=== PATIENT | female | born 1965 | race American Indian/Alaskan Native ===

== ENCOUNTER 2016-12-08 19:17 | Emergency (ER) | payer OTHER ==
[2016-12-08] MEDS: TYLENOL PO ONE (20:38)
--- NOTE | 2016-12-08 21:31 | Emergency Department Report ---
ED Fall HPI - General Chief Complaint: Fall Stated Complaint: L SHOULDER PAIN Time Seen by Provider: 12/08/16 21:06 Source: patient, family, EMS Mode of arrival: Wheelchair Limitations: No Limitations - History of Present Illness Initial Comments: Patient here reports fall in was accidental to left side last night. She says she lives consciousness but unsure for how long she denies any headache at present. Reporting nasal congestion. She is also complaining the left arm and shoulder pain this radiating down her left side. Denies any nausea vomiting. Denies any fever or chills. Pain is 10 out of 10. She states she hit her left shoulder when she fell. No wayd-bhh-motsqox medication taken. Described pain as aching pain. Denies being on any blood thinner. Denies any neck pain or stiffness. Denies any chest pain or shortness of breath. MD Complaint: fall -: Last night Fall From: chair When Fall Occurred: # days [employer] (1) Fall Witnessed: yes, by family Place Fall Occurred: home Loss of Consciousness: yes Prolonged Down Time?: unclear Symptoms Prior to Fall: none Location - Extremities: Left: Shoulder (pain to left shoulder and arm.), Arm ( Pain to her left shoulder and arm) Severity: severe Severity scale (0 -10): 7 Quality: aching Context: tripped/slipped Associated Symptoms: denies: headache, neck pain, numbness, weakness, chest paint, shortness of breath, abdominal pain, hematuria, unable to walk, lightheaded, vertigo, confusion - Related Data Previous Rx's Medication Instructions Recorded Last Taken Type Amoxicillin [Amoxicillin TAB] 875 mg PO BID #14 tablet 12/09/16 Unknown Rx Cetirizine HCl [ZyrTEC] 10 mg PO QDAY #14 capsule 12/09/16 Unknown Rx Fluticasone [Flonase] 1 spray NS QDAY #1 bottle 12/09/16 Unknown Rx Ibuprofen [Motrin] 600 mg PO Q8H PRN #15 tablet 12/09/16 Unknown Rx Allergies Allergy/AdvReac Type Severity Reaction Status Date / Time codeine Allergy Unknown Verified 12/08/16 20:31 wool Allergy Unknown Verified 12/08/16 20:31 ED Review of Systems ROS: Stated complaint: L SHOULDER PAIN Other details as noted in HPI Comment: All other systems reviewed and negative Constitutional: denies: chills, fever ENT: denies: throat pain Respiratory: no symptoms reported Cardiovascular: denies: chest pain, palpitations, edema, syncope Gastrointestinal: denies: abdominal pain, nausea, vomiting Genitourinary: denies: urgency, dysuria, frequency, hematuria Musculoskeletal: arthralgia. denies: back pain Skin: denies: rash Neurological: denies: headache, weakness, numbness, paresthesias, confusion ED Past Medical Hx - Past Medical History Previous Medical History?: Yes Hx Hypertension: No Additional medical history: OCD - Surgical History Past Surgical History?: No - Family History Family history: no significant - Social History Substance Use Type: None - Medications Home Medications: Home Medications Medication Instructions Recorded Confirmed Last Taken Type Amoxicillin [Amoxicillin TAB] 875 mg PO BID #14 tablet 12/09/16 Unknown Rx Cetirizine HCl [ZyrTEC] 10 mg PO QDAY #14 capsule 12/09/16 Unknown Rx Fluticasone [Flonase] 1 spray NS QDAY #1 bottle 12/09/16 Unknown Rx Ibuprofen [Motrin] 600 mg PO Q8H PRN #15 tablet 12/09/16 Unknown Rx ED Physical Exam - General Limitations: No Limitations General appearance: alert, in no apparent distress - Head Head exam: Present: atraumatic, normocephalic, normal inspection - Expanded Head Exam Expanded Head exam: Absent: laceration, abrasion, contusion, hematoma, racoon eyes, higgins's sign, general tenderness, tenderness of temporal artery, CSF rhinorrhea , CSF otorrhea - Eye Eye exam: Present: normal appearance, PERRL, EOMI. Absent: nystagmus, periorbital swelling, periorbital tenderness Pupils: Present: normal accommodation - ENT ENT exam: Present: normal exam, normal orophraynx, mucous membranes moist, normal external ear exam, other (bilateral nasal mucosa congested and erythema.) . Absent: TM's normal bilaterally (Bilateral TMs congested. Bilateral maxillary sinus and frontal sinuses nontender to palpate.) - Neck Neck exam: Present: normal inspection, full ROM. Absent: tenderness, meningismus, lymphadenopathy - Expanded Neck Exam Expanded Neck exam: Absent: tenderness, midline deformity, anterior neck swelling, tracheal deviation - Respiratory Respiratory exam: Present: normal lung sounds bilaterally. Absent: respiratory distress, chest wall tenderness - Cardiovascular Cardiovascular Exam: Present: regular rate, normal rhythm, normal heart sounds - GI/Abdominal GI/Abdominal exam: Present: soft, normal bowel sounds. Absent: distended, tenderness, guarding, rebound, rigid - Expanded Upper Extremity Exam Left Shoulder Exam: Present: normal inspection, full ROM (patient able to raise her arms over her head but she said it hurts in her shoulder), tenderness, tenderness over AC joint. Absent: swelling, abrasion, laceration, ecchymosis, deformity, crepidus, dislocation, erythema Upper Arm exam: Present: normal inspection, full ROM. Absent: tenderness, swelling, abrasion, laceration, ecchymosis, deformity, crepidus, dislocation, erythema Elbow exam: Present: normal inspection, full ROM. Absent: tenderness, swelling , abrasion, laceration, ecchymosis, deformity, crepidus, dislocation, erythema, effusion, pain w/ pronation/supination, tenderness over radial head Forearm Wrist exam: Present: normal inspection, full ROM. Absent: tenderness, swelling, abrasion, laceration, ecchymosis, deformity, crepidus, dislocation, erythema, tenderness over anatomical snuff box, pain with axial thumb loading Hand Wrist exam: Present: normal inspection, full ROM. Absent: tenderness, swelling, abrasion, laceration, ecchymosis, deformity, crepidus, dislocation, erythema, amputation, nail avulsion, subungual hematoma Neuro motor exam: Present: wrist extension intact, thumb opposition intact, thumb IP flexion intact, thumb adduction intact, fingers 2-5 abduction intact Neurosensory exam: Present: 2-point discrimination, radial nerve intact, ulnar nerve intact, median nerve intact Vascular: Present: normal capillary refill, radial pulse, brachial pulse, ulnar pulse. Absent: vascular compromise, Pallo, pulse deficit radial art, pulse deficit ulnar art, pulse deficit brachial art - Back Exam Back exam: Present: normal inspection, full ROM. Absent: tenderness, CVA tenderness (R), CVA tenderness (L), muscle spasm, paraspinal tenderness, vertebral tenderness, rash noted - Neurological Exam Neurological exam: Present: alert, oriented X3, normal gait, reflexes normal. Absent: motor sensory deficit - Expanded Neurological Exam Expanded Neurological exam: Absent: innattentive, memory loss-remote event, memory loss- recent event, ataxia, receptive aphasia, expressive aphasia, total aphasia, tremor, protecting the airway Patient oriented to: Present: person, place, time Speech: Present: fluid speech Cranial nerves: EOM's Intact: Normal, Gag Reflex: Normal, Nystagmus: Normal, Facial Sensation: Normal Cerebellar function: Romberg: Normal Upper motor neuron: Pronator Drift: Normal, Sensory Extinction: Normal Sensory exam: Upper Extremity Light Touch: Normal, Upper Extremity Temperature: Normal, UE 2 Point Discrimination: Normal, Lower Extremity Light Touch: Normal, Lower Extremity Temperature: Normal, LE 2 Point Discrimination: Normal Motor strength exam: RUE: 5, LUE: 5, RLE: 5, LLE: 5 DTR: bicep (R): 2+, bicep (L): 2+, tricep (R): 2+, tricep (L): 2+, knee (R): 2+ , knee (L): 2+, ankle (R): 2+, ankle (L): 2+ Best Eye Response (Jackson): (4) open spontaneously Best Motor Response (Lexi): (6) obeys commands Best Verbal Response (Lexi): (5) oriented Jackson Total: 15 - Psychiatric Psychiatric exam: Present: normal affect, normal mood - Skin Skin exam: Present: warm, dry, intact, normal color. Absent: rash ED Course Vital Signs 12/08/16 12/09/16 20:31 00:12 Temperature 98.2 F Pulse Rate 68 Respiratory 18 Rate Blood Pressure 177/100 Blood Pressure 160/80 [Left] O2 Sat by Pulse 99 Oximetry Vital Signs 12/08/16 12/09/16 20:31 00:12 Temperature 98.2 F Pulse Rate 68 Respiratory 18 Rate Blood Pressure 177/100 Blood Pressure 160/80 [Left] O2 Sat by Pulse 99 Oximetry - Reevaluation(s) Reevaluation #1: 12/09/16 00:20 Patient given Tylenol 650 mg in triage area which did not relieve her shoulder pain. He was then given Dilaudid 1 mg IM along with Zofran 4 mg ODT patient said after shoulder pain. ED Medical Decision Making - Radiology Data Radiology results: report reviewed X-ray of right shoulder reveal no acute fracture or dislocation. CT scan of the brain revealed only: Infarct in the vin. Right maxillary sinusitis. No evidence of traumatic intracranial injury. CAT scan of the C-spine revealed degenerative disease without any fracture or subluxation. - Medical Decision Making ED course: Patient with shoulder pain status post falling. She has degeneration of the C-spine. CT scan of the head reveals normal coronary and circumflex with right maxillary sinus infection. Patient with congestion and erythema to nostrils. I instructed patient and family on diagnostic findings and let her know that she'll need to follow-up with orthopedic doctor regarding degenerative disease in her neck. I also instructed her that she has a sinus infection and will be treated with antibiotic. Condition discharged home with prescription for Zyrtec, Flonase, amoxicillin and motrin Critical care attestation.: If time is entered above; I have spent that time in minutes in the direct care of this critically ill patient, excluding procedure time. ED Disposition Clinical Impression: Arthralgia of left shoulder region, Degenerative disc disease, cervical, Elevated blood pressure (not hypertension) Accidental fall Qualifiers: Encounter type: initial encounter Qualified Code(s): W19.XXXA - Unspecified fall, initial encounter Maxillary sinusitis Qualifiers: Chronicity: unspecified Qualified Code(s): J32.0 - Chronic maxillary sinusitis Minor head injury with loss of consciousness Qualifiers: Encounter type: initial encounter Loss of consciousness presence/duration: with LOC of 30 min or less Qualified Code(s): S06.9X1A - Unspecified intracranial injury with loss of consciousness of 30 minutes or less, initial encounter Disposition: DISCHARGED TO HOME OR SELFCARE Is pt being admited?: No Does the pt Need Aspirin: No Condition: Stable Instructions: Sinusitis (ED), Minor Head Injury (ED), Hypertension (ED), Arthralgia (ED), Degenerative Disc Disease (ED) Additional Instructions: Your blood pressure was elevated and emergency room so please keep a log and take to primary care visit. Follow-up with orthopedic doctor regarding her degenerative disease any neck Take medications as prescribed Prescriptions: Amoxicillin [Amoxicillin TAB] 875 mg PO BID #14 tablet Cetirizine HCl [ZyrTEC] 10 mg PO QDAY #14 capsule Fluticasone [Flonase] 1 spray NS QDAY #1 bottle Ibuprofen [Motrin] 600 mg PO Q8H PRN #15 tablet PRN Reason: Pain Referrals: PRIMARY CARE,MD [Primary Care Provider] - 3-5 Days [facility] [Outside] - 3-5 Days Forms: Accompanied Note, Work/School Release Form(ED)
[2016-12-08] MEDS: ZOFRAN ODT PO ONE (22:01)
[2016-12-08] MEDS: DILAUDID IM ONE (22:01)
--- NOTE | 2016-12-08 22:30 | XRay Report ---
FINAL REPORT PROCEDURE: Left shoulder. TECHNIQUE: Three views. HISTORY: Patient fell, shoulder pain. COMPARISON: No prior studies are available for comparison. FINDINGS: The bones appear intact without fracture or dislocation. The joint spaces appear normal. The soft tissues are unremarkable. IMPRESSION: Normal study.
--- NOTE | 2016-12-08 23:38 | Cat Scan Report ---
FINAL REPORT PROCEDURE: CT head without contrast. TECHNIQUE: Computerized tomography of the head was performed without contrast material. HISTORY: Head injury. COMPARISON: No prior studies are available for comparison. FINDINGS: The ventricles are normal in size. There is an old lacunar infarct in the vin. The huff matter and white matter are otherwise normal. There are no mass lesions. There is no intracranial hemorrhage. The mastoid air cells are clear. There is opacification in the right maxillary sinus as far as visualized. IMPRESSION: Old lacunar infarct in the vin. Right maxillary sinusitis. No evidence of traumatic intracranial injury.
--- NOTE | 2016-12-08 23:44 | Cat Scan Report ---
FINAL REPORT PROCEDURE: CT cervical spine without contrast. TECHNIQUE: Computerized tomography of the cervical spine was performed from the skull base to T1 without contrast material. HISTORY: Head and neck injury. COMPARISON: No prior studies are available for comparison. FINDINGS: The cervical vertebrae have normal height and alignment. There are no fractures. There is no subluxation. There are large vertebral body osteophytes in the mid and lower cervical spine. The spinal canal is widely patent. There is osteoarthritis involving a few of the facet joints. The neural foramina appear adequately patent. The prevertebral soft tissues have normal thickness. IMPRESSION: Degenerative disease as described. No evidence of acute cervical spine injury.
[2016-12-09 00:15] VITALS: BP 160/80
== END 2016-12-09 00:45 | disposition home or self-care (01) ==
LOC: ED 19:17
DX: S06.9X1A Unspecified intracranial injury with loss of consciousness of 30 minutes or less, initial encounter (principal); M25.512 Pain in left shoulder; M79.602 Pain in left arm; M50.30 Other cervical disc degeneration, unspecified cervical region; R03.0 Elevated blood-pressure reading, without diagnosis of hypertension; W01.0XXA Fall on same level from slipping, tripping and stumbling without subsequent striking against object, initial encounter; Y93.89 Activity, other specified; Y99.8 Other external cause status; Y92.89 Other specified places as the place of occurrence of the external cause; Z88.5 Allergy status to narcotic agent; Z91.048 Other nonmedicinal substance allergy status
CPT/HCPCS: 70450; 72125; 73030; 96372; 99284; J1170; Q0162

== ENCOUNTER 2017-08-10 16:50 | Emergency (ER) | payer SELFPAY ==
[2017-08-10] MEDS ORDERED: TORADOL IM ONE (17:51)
--- NOTE | 2017-08-10 17:56 | Emergency Department Report ---
ED Fall HPI - General Chief Complaint: Extremity Injury, Lower Stated Complaint: LT KNEE PAIN Time Seen by Provider: 08/10/17 17:50 Source: patient, EMS Mode of arrival: Stretcher Limitations: No Limitations - History of Present Illness Initial Comments: 52 YO FEMALE C/O LEFT KNEE PAIN AND SWELLING AND NECK PAIN AFTER FALLING ON THE [employer]. PT SAID THE WRAPPER SELECTOR HIT THE CURB AND SHE FELL HITTING HER LEFT KNEE AND HER NECK. SHE HAD SURGERY TWICE ON THE LEFT KNEE AT [facility] FOR EFFUSION OF THE LEFT KNEE. PER PT, THEY HAD TO REMOVE FLUID FROM HER KNEE JOINT TWICE MD Complaint: fall -: Sudden Fall From: standing When Fall Occurred: 1-3 hours [employer] Fall Witnessed: yes, by bystander Place Fall Occurred: other (ON THE [employer]) Loss of Consciousness: none Prolonged Down Time?: no Symptoms Prior to Fall: none Location - Extremities: Left: Knee Severity scale (0 -10): 10 Associated Symptoms: neck pain - Related Data Previous Rx's Medication Instructions Recorded Last Taken Type Amoxicillin [Amoxicillin TAB] 875 mg PO BID #14 tablet 12/09/16 Unknown Rx Cetirizine HCl [ZyrTEC] 10 mg PO QDAY #14 capsule 12/09/16 Unknown Rx Fluticasone [Flonase] 1 spray NS QDAY #1 bottle 12/09/16 Unknown Rx Ibuprofen [Motrin 600 MG tab] 600 mg PO Q8H PRN #15 tablet 08/10/17 Unknown Rx oxyCODONE /ACETAMINOPHEN [Percocet 1 tab PO Q6HR PRN #14 tablet 08/10/17 Unknown Rx 5/325] Allergies Allergy/AdvReac Type Severity Reaction Status Date / Time codeine Allergy Unknown Verified 12/08/16 20:31 wool Allergy Unknown Verified 12/08/16 20:31 ED Review of Systems ROS: Stated complaint: LT KNEE PAIN Other details as noted in HPI Constitutional: denies: chills, fever Eyes: denies: eye pain, eye discharge, vision change ENT: denies: ear pain, throat pain Respiratory: denies: cough, shortness of breath, wheezing Cardiovascular: denies: chest pain, palpitations Endocrine: no symptoms reported Gastrointestinal: denies: abdominal pain, nausea, diarrhea Genitourinary: denies: urgency, dysuria, discharge Musculoskeletal: joint swelling, arthralgia. denies: back pain Skin: denies: rash, lesions Neurological: denies: headache, weakness, paresthesias Psychiatric: denies: anxiety, depression Hematological/Lymphatic: denies: easy bleeding, easy bruising ED Past Medical Hx - Past Medical History Previous Medical History?: Yes Hx Hypertension: Yes Hx Diabetes: Yes Additional medical history: OCD - Surgical History Past Surgical History?: Yes Additional Surgical History: left knee surgery X2 - Family History Family history: hypertension - Social History Smoking Status: Current Every Day Smoker Substance Use Type: None - Medications Home Medications: Home Medications Medication Instructions Recorded Confirmed Last Taken Type Amoxicillin [Amoxicillin TAB] 875 mg PO BID #14 tablet 12/09/16 Unknown Rx Cetirizine HCl [ZyrTEC] 10 mg PO QDAY #14 capsule 12/09/16 Unknown Rx Fluticasone [Flonase] 1 spray NS QDAY #1 bottle 12/09/16 Unknown Rx Ibuprofen [Motrin 600 MG tab] 600 mg PO Q8H PRN #15 tablet 08/10/17 Unknown Rx oxyCODONE /ACETAMINOPHEN [Percocet 1 tab PO Q6HR PRN #14 tablet 08/10/17 Unknown Rx 5/325] ED Physical Exam - General Limitations: No Limitations General appearance: alert, in no apparent distress - Head Head exam: Present: atraumatic, normocephalic - Eye Eye exam: Present: normal appearance - ENT ENT exam: Present: mucous membranes moist - Neck Neck exam: Present: normal inspection, tenderness (PARASPINOUS MUSCLE TNEERNESS) - Respiratory Respiratory exam: Present: normal lung sounds bilaterally. Absent: respiratory distress - Cardiovascular Cardiovascular Exam: Present: regular rate, normal rhythm. Absent: systolic murmur, diastolic murmur, rubs, gallop - GI/Abdominal GI/Abdominal exam: Present: soft, normal bowel sounds - Rectal Rectal exam: Present: deferred - Extremities Exam Extremities exam: Present: normal inspection, full ROM (BUT TENDER), tenderness (OVER LEFT KNEE, SWELLING, MIDLINE HEALED SURGICAL SCAR, NO ABRUISING, NO ABRASION) - Back Exam Back exam: Present: normal inspection, full ROM - Neurological Exam Neurological exam: Present: alert, oriented X3, CN II-XII intact - Psychiatric Psychiatric exam: Present: normal affect, normal mood - Skin Skin exam: Present: warm, dry, intact, normal color. Absent: rash ED Course Vital Signs 08/10/17 08/10/17 16:52 17:29 Temperature 98.7 F 98.2 F Pulse Rate 88 84 Respiratory 18 18 Rate Blood Pressure 164/100 Blood Pressure 164/100 [Left] O2 Sat by Pulse 97 100 Oximetry - Reevaluation(s) Reevaluation #1: 08/10/17 20:53 PT CARE TURNED OVER TO DR PATRICIO WHO WILL FOLLOW HER CT AND MAKE APPROPRIATE DISPOSITION ED Medical Decision Making - Radiology Data Radiology results: report reviewed (LEFT KNEE:OSTEOPENIA,DJD OF LEFT KNEE ), image reviewed (CXR; SEVERE DJD,OA; LEFT KNEE: DJD,OA) Critical care attestation.: If time is entered above; I have spent that time in minutes in the direct care of this critically ill patient, excluding procedure time. ED Disposition Clinical Impression: Neck pain, Osteopenia Knee contusion Qualifiers: Encounter type: initial encounter Laterality: left Qualified Code(s): S80.02XA - Contusion of left knee, initial encounter DJD (degenerative joint disease) of cervical spine Qualifiers: Spinal osteoarthritis complication: unspecified spinal osteoarthritis Qualified Code(s): M47.812 - Spondylosis without myelopathy or radiculopathy, cervical region DJD (degenerative joint disease) of knee Qualifiers: Osteoarthritis type: unspecified Laterality: left Qualified Code(s): M17.12 - Unilateral primary osteoarthritis, left knee Disposition: TO HOME OR SELFCARE Is pt being admited?: No Does the pt Need Aspirin: No Condition: Stable Instructions: Osteoarthritis (ED), Knee Pain (ED), Cervical Sprain (ED), Degenerative Disc Disease (ED) Additional Instructions: PLEASE FOLLOW UP WITH YOUR BONE DR IN TWO DAYS AND SEE FABBY BOTELLO DR SOON POSSIBLE Prescriptions: Ibuprofen [Motrin 600 MG tab] 600 mg PO Q8H PRN #15 tablet PRN Reason: Pain oxyCODONE /ACETAMINOPHEN [Percocet 5/325] 1 tab PO Q6HR PRN #14 tablet PRN Reason: Pain Referrals: PRIMARY CARE,MD [Primary Care Provider] - 3-5 Days Time of Disposition: 20:14
--- NOTE | 2017-08-10 20:01 | XRay Report ---
FINAL REPORT PROCEDURE: XR KNEE 3V LT TECHNIQUE: LEFT knee radiographs, AP, lateral and sunrise views. CPT 43193 HISTORY: Fall, pain. COMPARISON: No prior studies are available for comparison. FINDINGS: Fracture (s) and/or Dislocation(s): None . Joint space: Moderate lateral and patellofemoral compartment narrowing and osteophytes. Moderate to severe medial compartment narrowing and osteophytes with small subchondral cysts. Tibial eminence spurring. Patellar enthesophyte. Joint effusion. Amorphous calcification in the supra and infrapatellar regions. Alignment: Mild genu valgum. Soft tissues: Normal . Bone mineralization: Osteopenia. Foreign bodies: None . IMPRESSION: Osteopenia and degenerative change of the knee.
--- NOTE | 2017-08-10 20:20 | XRay Report ---
FINAL REPORT EXAM: XR SPINE CERVICAL 2-3V HISTORY: TRAUMA TO NECK TECHNIQUE: AP, lateral, swimmer's, open-mouth odontoid and odontoid Fuchs radiographs of the cervical spine. PRIORS: CT of the cervical spine 12/08/2016. FINDINGS: The cervical spine is imaged from C1 through C7. The cervicothoracic junction was not completely imaged. Normal alignment. There is a new lucency through the body of the odontoid. There is prevertebral soft tissue swelling. The lateral masses of C1 and C2 are in normal alignment. Multilevel degenerative changes of the cervical spine are again seen. IMPRESSION: Findings concerning for acute odontoid fracture. Recommend further evaluation with CT of the cervical spine. Findings were discussed with Dr. Morales at 5:14 p.m. PST on 08/10/2017.
--- NOTE | 2017-08-10 20:58 | Cat Scan Report ---
FINAL REPORT EXAM: CT CERVICAL SPINE WO CON HISTORY: ODONTOID FRACTURE TECHNIQUE: CT of the cervical spine was performed without intravenous contrast. Reconstructions were included in the coronal and sagittal planes. PRIORS: Cervical spine radiographs from earlier today and cervical spine CT from 12/08/2016. FINDINGS: New erosive changes of the anterior and posterior aspects of the odontoid are seen. Erosion of the anterior ring of C1 is also seen. These findings are new since the prior cervical spine CT from 12/08/2016. No evidence of cervical spine fracture. No subluxation. Fullness of the soft tissues surrounding the dens may be related to pannus formation. Multilevel degenerative changes of the cervical spine are again seen with multilevel neural foraminal narrowing. No severe spinal canal stenosis. There is a right mastoid effusion. IMPRESSION: New erosions of the dens likely causing the appearance of fracture on the radiographs from earlier today. Erosions also involving the anterior arch of C1. Findings most likely are related to inflammatory arthropathy such as rheumatoid arthritis versus systemic lupus erythematosus versus crystal arthropathy or osteomyelitis. Findings can also be seen in hyperparathyroidism.
[2017-08-10] MEDS ORDERED: ZOFRAN IV ONE (22:09)
[2017-08-10] MEDS ORDERED: MORPHINE IV ONE (22:13)
--- NOTE | 2017-08-10 23:45 | Magnetic Resonance Report ---
FINAL REPORT PROCEDURE: MR CERVICAL SPINE WO CON TECHNIQUE: Magnetic resonance imaging of the cervical spine was performed using standard pulse sequences without contrast material. HISTORY: neck pain COMPARISON: CT and x-ray FINDINGS: The generalized signal intensity of the osseous structures is intact. There is no fracture. Odontoid process is diminished signal consistent with sclerosis. There is cortical irregularity suggesting erosive change of the odontoid and C1 ring. There is no acute fracture. C1-2: Arthritic change with spurring, ligamentous hypertrophy, erosive change, and effusion. C2-3: Disc space is well preserved. Mild facet spurring. C3-4: Disc bulge and spurring flattening the thecal sac. Facet spurring on the right. C4-5: Disc space narrowing. Disc bulge and spurring to the right narrowing the right lateral recess. Uncovertebral spurring with right foraminal narrowing. C5-6: Disc space narrowing. Disc bulge and spurring flattening the thecal sac with narrowing of the right lateral recess. Facet and uncovertebral spurring with foraminal narrowing.. C6-7: Disc space narrowing. Central disc protrusion. C7-T1: No significant abnormality . Other: None . IMPRESSION: Cervical spondylosis. Arthritic change at the atlantoaxial articulation.
[2017-08-11 07:52] VITALS: BP 117/66
== END 2017-08-11 01:40 | disposition home or self-care (01) ==
LOC: ED 16:50
DX: S80.02XA Contusion of left knee, initial encounter (principal); M47.812 Spondylosis without myelopathy or radiculopathy, cervical region; M85.80 Other specified disorders of bone density and structure, unspecified site; F17.200 Nicotine dependence, unspecified, uncomplicated; I10 Essential (primary) hypertension; E11.9 Type 2 diabetes mellitus without complications; F42.9 Obsessive-compulsive disorder, unspecified; W18.00XA Striking against unspecified object with subsequent fall, initial encounter; Y93.89 Activity, other specified; Y99.8 Other external cause status; Y92.811 Bus as the place of occurrence of the external cause
CPT/HCPCS: 72040; 72125; 72141; 73562; 96372; 96374; 96375; 99284; J1885; J2270; J2405

== ENCOUNTER 2018-11-01 13:53 | Emergency (ER) | payer MEDICAID, OTHER ==
[2018-11-01] MEDS ORDERED: NACL 0.9% 1000 ML 1,000 ML IV ONE (14:23)
[2018-11-01] MEDS ORDERED: TORADOL IV ONE (14:23)
[2018-11-01 14:46] LABS: Basophils % (Auto) 0.5 % (0.0-1.8); Eosinophils % (Auto) 0.2 % (0.0-4.3); Hemoglobin 13.7 gm/dl (10.1-14.3); Lymphocytes # (Auto) 1.9 K/mm3 (1.2-5.4); Lymphocytes % (Auto) 25.5 % (13.4-35.0); Mean Corpuscular HGB Conc 34 % (30-34); Mean Corpuscular Volume 91 fl (79-97); Monocytes # (Auto) 0.4 K/mm3 (0.0-0.8); Platelet Count 208 K/mm3 (140-440); Red Cell Distribution Width 16.4 % (13.2-15.2)
[2018-11-01 15:04] LABS: Alanine Aminotransferase 206 units/L (7-56); Albumin 3.8 g/dL (3.9-5); BUN/Creatinine Ratio 14; Blood Urea Nitrogen 13 mg/dL (7-17); Calcium 9.6 mg/dL (8.4-10.2); Hemolysis Index 8
[2018-11-01 15:25] LABS: Bilirubin,Urine NEG (Negative); Blood,Urine NEG (Negative); Color,Urine Yellow (Yellow); Protein,Urine <15 mg/dL mg/dL (Negative); WBC,Urine < 1.0 /HPF (0.0-6.0)
--- NOTE | 2018-11-01 16:19 | Emergency Department Report ---
ED Abdominal Pain HPI - General Chief Complaint: Abdominal Pain Stated Complaint: ABD PAIN Time Seen by Provider: 11/01/18 14:12 Source: patient, EMS Mode of arrival: Stretcher Limitations: No Limitations - History of Present Illness Initial Comments: 53-year-old female with history of drug abuse, hepatitis C presents to ED with low abdominal pain 2 days. Patient states she was seen at [facility] on yesterday and told that she had a "size 8" kidney stone. Patient reports history of kidney stones in the past. Reports difficulty urinating. Denies N/V. Requesting something to eat. MD Complaint: abdominal pain -: days(s) (2) Location: suprapubic Migration to: no migration Severity: moderate Severity scale (0 -10): 10 Quality: sharp Consistency: constant Improves With: nothing Worsens With: nothing Associated Symptoms: other (reports difficulty urinating). denies: nausea, vomiting - Related Data Previous Rx's Medication Instructions Recorded Last Taken Type Amoxicillin [Amoxicillin TAB] 875 mg PO BID #14 tablet 12/09/16 Unknown Rx Cetirizine HCl [ZyrTEC] 10 mg PO QDAY #14 capsule 12/09/16 Unknown Rx Fluticasone [Flonase] 1 spray NS QDAY #1 bottle 12/09/16 Unknown Rx Ibuprofen [Motrin 600 MG tab] 600 mg PO Q8H PRN #15 tablet 08/10/17 Unknown Rx oxyCODONE /ACETAMINOPHEN [Percocet 1 tab PO Q6HR PRN #14 tablet 08/10/17 Unknown Rx 5/325] Naproxen [Naprosyn] 500 mg PO BID #20 tablet 11/01/18 Unknown Rx Allergies Allergy/AdvReac Type Severity Reaction Status Date / Time No Known Allergies Allergy Unverified 08/10/17 22:13 ED Review of Systems ROS: Stated complaint: ABD PAIN Other details as noted in HPI Comment: All other systems reviewed and negative Constitutional: denies: chills, fever Gastrointestinal: abdominal pain. denies: nausea, vomiting Genitourinary: other (reports difficulty urinating) ED Past Medical Hx - Past Medical History Previous Medical History?: Yes Hx Hypertension: Yes Hx Diabetes: Yes Additional medical history: OCD, kidney stones, depression - Surgical History Past Surgical History?: Yes Additional Surgical History: left knee surgery X2 - Social History Smoking Status: Current Every Day Smoker Substance Use Type: Alcohol - Medications Home Medications: Home Medications Medication Instructions Recorded Confirmed Last Taken Type Amoxicillin [Amoxicillin TAB] 875 mg PO BID #14 tablet 12/09/16 Unknown Rx Cetirizine HCl [ZyrTEC] 10 mg PO QDAY #14 capsule 12/09/16 Unknown Rx Fluticasone [Flonase] 1 spray NS QDAY #1 bottle 12/09/16 Unknown Rx Ibuprofen [Motrin 600 MG tab] 600 mg PO Q8H PRN #15 tablet 08/10/17 Unknown Rx oxyCODONE /ACETAMINOPHEN [Percocet 1 tab PO Q6HR PRN #14 tablet 08/10/17 Unknown Rx 5/325] Naproxen [Naprosyn] 500 mg PO BID #20 tablet 11/01/18 Unknown Rx ED Physical Exam - General Limitations: No Limitations General appearance: alert, in no apparent distress - Head Head exam: Present: atraumatic, normocephalic - Eye Eye exam: Present: normal appearance - ENT ENT exam: Present: mucous membranes moist - Neck Neck exam: Present: normal inspection - Respiratory Respiratory exam: Present: normal lung sounds bilaterally. Absent: respiratory distress - Cardiovascular Cardiovascular Exam: Present: regular rate, normal rhythm - GI/Abdominal GI/Abdominal exam: Present: soft, tenderness (mild suprapubic), other (bladder nondistended). Absent: distended - Extremities Exam Extremities exam: Present: normal inspection - Back Exam Back exam: Absent: CVA tenderness (R), CVA tenderness (L) - Neurological Exam Neurological exam: Present: alert, oriented X3 - Psychiatric Psychiatric exam: Present: normal affect, normal mood - Skin Skin exam: Present: warm, dry, intact, normal color. Absent: rash ED Course Vital Signs 11/01/18 11/01/18 11/01/18 14:04 15:15 16:47 Temperature 99.1 F 99.6 F Pulse Rate 98 H 83 Respiratory 16 16 18 Rate Blood Pressure 138/78 Blood Pressure 147/80 [Left] O2 Sat by Pulse 100 98 Oximetry ED Medical Decision Making - Lab Data Result diagrams: 11/01/18 14:31 11/01/18 14:31 - Radiology Data Radiology results: report reviewed, image reviewed - Differential Diagnosis kidney stone, UTI, diverticulitis Critical care attestation.: If time is entered above; I have spent that time in minutes in the direct care of this critically ill patient, excluding procedure time. ED Disposition Clinical Impression: Abdominal pain Disposition: DC-01 TO HOME OR SELFCARE Is pt being admited?: No Condition: Stable Instructions: Abdominal Pain (ED) Prescriptions: Naproxen [Naprosyn] 500 mg PO BID #20 tablet Referrals: CHRISTI RUBIN MD [Primary Care Provider] - 3-5 Days Time of Disposition: 17:29
--- NOTE | 2018-11-01 16:59 | Cat Scan Report ---
PROCEDURE: CT ABDOMEN PELVIS WO CON TECHNIQUE: Axial images of the abdomen and pelvis obtained without intravenous or oral contrast. Sag ittal and coronal reconstructions also obtained. HISTORY: abd pain, hx kidney stones COMPARISONS: No priors FINDINGS: Images through the lung bases show no evidence of airspace consolidation or pleural effusions. The unenhanced hepatic and splenic parenchyma are within normal limits. Tiny hepatic and splenic calc ifications, likely granuloma. Adrenals and pancreas are within normal limits. There is no evidence of urolithiasis or obstructive uropathy. Left renal cortical thinning and scarring. Evaluation is limited without intravenous and oral contrast. No bowel obstruction or free intraperitoneal air. No evidence of colitis or diverticulitis. Normal appendix, no signs of appendicitis. No inflammatory changes or abnormal fluid collections in the abdomen or pelvis. The uterus and urinary bladder are within normal limits. Multiple pelvic phleboliths incidentally noted. IMPRESSION: Negative noncontrast CT of the abdomen and pelvis. No urolithiasis or obstructive uropathy. Left renal cortical thinning and scarring. Evaluation significantly limited by the lack of intravenous and oral contrast. . This document is electronically signed by Eddie Stephens MD., November 01 2018 04:56:34 PM ET
[2018-11-01 18:47] VITALS: BP 130/76
== END 2018-11-01 18:59 | disposition home or self-care (01) ==
LOC: ED 13:53
DX: R10.9 Unspecified abdominal pain (principal); I10 Essential (primary) hypertension; E11.9 Type 2 diabetes mellitus without complications; F32.9 Major depressive disorder, single episode, unspecified; F17.200 Nicotine dependence, unspecified, uncomplicated
CPT/HCPCS: 36415; 74176; 80053; 81001; 85025; 96374; 99284; J1885; J7030